=== PATIENT | female | born 1940 | race African-American/Black ===

== ENCOUNTER → 2017-02-22 | Day surgery (SDC) | payer MEDICARE, BC ==
--- NOTE | 2017-02-21 22:58 | Pre-Procedure Note/Attestation ---
Pre-Procedure Note/Attestation Complete Prior to Procedure Planned Procedure: left - Removal of cataract and placement of intraocular lens left eye Indications for Procedure Pre-Operative Diagnosis: cataract, nuclear, left eye Attestation I attest that I discussed the nature of the procedure; its benefits; risks and complications; and alternatives (and the risks and benefits of such alternatives ), prior to the procedure, with the patient (or the patient's legal employment program representative). I attest that, if there was a reasonable possibility of needing a blood transfusion, the patient (or the patient's legal employment program representative) was given the [facility] standardized written summary, pursuant to the Ricardo Jaclyn Blood Safety Act ([place] Health and Safety Code # 1645, as amended). I attest that I re-evaluated the patient just prior to the surgery and that there has been no change in the patient's H&P, except as documented below: Harpreet Ventura MD Feb 21, 2017 22:58
[2017-02-22] VITALS (9 sets, daily range): BP systolic 101–138; BP diastolic 52–81
[~2017-02-22] VITALS: Ht 167.6 cm; Wt 91.6 kg
[~2017-02-22] MED LIST: ASPIRIN81 MG ORAL; Akten 3.5% 1ml Btl ONE; Alfentanil 2ml Inj ONE; Atropine Inj 1mg/10ml Syr IV PRN; BSS 15ml BTL ONE; BSS 500ml btl ONE; Carbachol 0.01% Op Soln 1.5ml vial ONE; Cyclopentolate 1% Opth Sol ONE; DIGOXIN0.125 MG/2 ORAL; Dexamethasone 4mg/ml vial ONE; DiphenhydrAMINE 50mg/ml Inj IVP PRN; EPINEPHrine 1mg/1ml Amp ONE; FUROSEMIDE80 M1 ORAL; Flurbiprofen 0.03% Opth Sol 2.5ml ONE; GABAPENTIN100 MG ORAL; Gatifloxacin Opth Solution 0.5% ONE; Hydromorphone 0.5mg/0.5ml inj IVP PRN; Ketorolac 30mg Inj IV PRN; Ketorolac 60mg Inj IV PRN; LOPRESSOR5 MG/5 ML IV; LORazepam Inj 2mg/ml 1ml IV PRN; LR 1000ml 1,000 ML IVLG SCH; LR 1000ml ONE; Labetalol 5mg/ml 20ml vial IV PRN; Lidocaine 1% MPF 10mg/ml 5ml ONE; METOPROLOL SUCC50 MG ORAL; Maxitrol Opth Oint 3.5gm ONE; Meperidine 25mg/ml Inj IV PRN; Metoclopramide 10mg/2ml Inj IVP PRN; Midazolam 2mg/2ml Inj IVP PRN; NS Irrig 1000ml ONE; Norco 5mg/325mg tab ORAL PRN; Norco 7.5mg/325mg tab ORAL PRN; Oxycodone/Acetaminophen 5-325 ORAL PRN; Phenylephrine 10% Opth Soln 5ml ONE; Povidone-Iodine 5% opth solution ONE; Pred Forte 1% Opth Susp 1ml LEFT EYE ONE; Pred Forte 1% Opth Susp 1ml ONE; Propofol 10mg/ml 20ml IV ONE; Sodium Hyaluronate 14 mg/ml 0.85ml ONE; Sterile Water Irrig 1000ml IRRIG ONE; Tetracaine 0.5% Opth Soln ONE; Timolol 0.5% Op Soln 2.5ml ONE; fentaNYL 100 mcg/2 mL IV PRN
[2017-02-22] MEDS: Flurbiprofen 0.03% Opth Sol 2.5ml LEFT EYE SCH ×3 (11:03→11:38)
[2017-02-22] MEDS: Akten 3.5% 1ml Btl LEFT EYE SCH ×3 (11:03→11:39)
[2017-02-22] MEDS: Gatifloxacin Opth Solution 0.5% LEFT EYE SCH ×3 (11:04→11:39)
[2017-02-22] MEDS: Cyclopentolate 1% Opth Sol LEFT EYE SCH ×3 (11:04→11:39)
[2017-02-22] MEDS: Phenylephrine 10% Opth Soln 5ml LEFT EYE SCH ×3 (11:04→11:38)
--- NOTE | 2017-02-22 13:17 | Anethesia Preoperative Eval ---
Anesthesia Pre-op PMH/ROS General Date of Evaluation: Feb 22, 2017 Time of Evaluation: 12:49 Anesthesiologist: Brown ASA Score: ASA 3 Mallampati Score Class I : Soft palate, uvula, fauces, pillars visible Class II: Soft palate, uvula, fauces visible Class III: Soft palate, base of uvula visible Class IV: Only hard plate visible Mallampati Classification: Class II Surgeon: Lorenzo Diagnosis: Cataract OS Surgical Procedure: Cat Ext IOL OS Anesthesia History: none Family History: no anesthesia problems Allergies: Coded Allergies: PROCHLORPERAZINE (Verified Allergy, Unknown, 02/21/17) TEGASEROD (Verified Allergy, Unknown, 02/22/17) Medications: see eMAR Past Medical History Cardiovascular: Reports: HTN, other - HL Pulmonary: Reports: STACIE - CPAP Other: obesity - BMI 33 PSxH Narrative: Cat OD, Anival THR, Laminectomy Anesthesia Pre-op Phys. Exam Physician Exam Last Vital Signs Date Time Temp Pulse Resp B/P Pulse Ox O2 Delivery O2 Flow Rate FiO2 02/22/17 11:28 98.1 54 18 134/81 95 Room Air Constitutional: NAD Neurologic: CN 2-12 intact Cardiovascular: RRR Respiratory: CTA Gastrointestinal: S/NT/ND Airway Exam Mallampati Score: Class II MO: limited ROM: limited Teeth: missing, intact Anesthesia Pre-op A/P Risk Assessment & Plan Assessment: ASA 3 Plan: GA Status Change Before Surgery: No John Dasilva MD Feb 22, 2017 13:17
--- NOTE | 2017-02-22 13:18 | Immediate Post-Op Evaluation ---
Immediate Post-Op Evalulation Immediate Post-Op Evalulation Procedure: Cat Ext IOL OS Date of Evaluation: Feb 22, 2017 Time of Evaluation: 13:51 IV Fluids: 300 LR Blood Products: 0 Estimated Blood Loss: 1 Urinary Output: 0 Blood Pressure Systolic: 119 Blood Pressure Diastolic: 64 Pulse Rate: 71 Respiratory Rate: 16 O2 Sat by Pulse Oximetry: 98 Temperature (Fahrenheit): 98.6 Pain Score (1-10): 1 Nausea: No Vomiting: No Complications 0 Patient Status: awake, reacts, patent, none Hydration Status: adequate John Dasilva MD Feb 22, 2017 13:18
--- NOTE | 2017-02-22 13:19 | 48 Hour Post Anesthesia Eval ---
Post Anesthesia Evaluation Procedure: Cat Ext IOL OS Date of Evaluation: Feb 22, 2017 Time of Evaluation: 15:53 Blood Pressure Systolic: 118 0: 72 Pulse Rate: 63 Respiratory Rate: 18 Temperature (Fahrenheit): 98.6 O2 Sat by Pulse Oximetry: 99 Airway: patent Nausea: No Vomiting: No Pain Intensity: 1 Hydration Status: adequate Cardiopulmonary Status: Stable Mental Status/LOC: patient returned to baseline Follow-up Care/Observations: 0 Post-Anesthesia Complications: 0 Follow-up care needed: ready to discharge John Dasilva MD Feb 22, 2017 13:19
--- NOTE | 2017-02-22 13:45 | Discharge Instructions ---
Discharge Instructions Discharge Instructions Follow Up Orders Continue preop eye drops Wear shield at all times except to place eye drops Followup tomorrow in Dr Ventura's office For Congestive Heart Failure Reminder Report to your physician any weight gain of 5 pounds or more in one week. Harpreet Ventura MD Feb 22, 2017 13:45
--- NOTE | 2017-02-22 13:47 | Brief Operative Note ---
Immediate Post Operative Note Operative Note Pre-op Diagnosis: cataract, nuclear, left eye Procedure: phaco pc iol, os Post-op Diagnosis: same as pre-op Surgeon: Eliane Ventura MD Housekeeper: none Anesthesiologist: Dr Dasilva Anesthesia: local, MAC Specimen: none Complications: none Fluids: IV Implant(s) used?: Yes - price [id number] [id number] 22.5 Harpreet Ventura MD Feb 22, 2017 13:47
--- NOTE | 2017-02-22 23:09 | Operative Note - Dictated ---
DATE OF OPERATION: 02/22/2017 SURGEON: Harpreet Ventura M.D. FAMILY SERVICE WORKER: None. ANESTHESIOLOGIST: John Dasilva M.D. ANESTHESIA: Local/standby/monitored anesthesia care. PREOPERATIVE DIAGNOSIS: Cataract, senile, nuclear, cortical, left eye. POSTOPERATIVE DIAGNOSIS: Cataract, senile, nuclear, cortical, left eye. PROCEDURE: 1. Phacoemulsification of cataract, left eye. 2. Placement of posterior chamber intraocular lens, left eye (model [id number], power 22.5). SPECIMENS: None. COMPLICATIONS: None. INDICATIONS FOR SURGERY: The patient has had the painless progressive decrease in visual acuity in the left eye secondary to cataract. The patient understands the risks of surgery including infection, bleeding, need for further surgery, loss of vision, no improvement in vision, loss of the eye, loss of life, glaucoma, retinal detachment, and understands these risks and elects to proceed with surgery. FINDINGS: The patient had a very dense central +3 to 4 nuclear sclerotic cataract worse in the periphery, it was more of a +2 nuclear cataract, but there was a +3 cortical change also. Operative Note: After informed consent was obtained, the patient was brought into the operating room and placed in the supine position. Cardiac and respiratory monitors were attached. A time-out was performed and all criteria were met and everyone in the room agreed. The left eye was then draped and prepped in the sterile manner for ocular surgery. A lid speculum was placed in the eye. A 1% lidocaine preservative-free was injected at the approximate 2 o'clock limbus. A conjunctival peritomy from approximately 2 o'clock to 3 o'clock was made and dissected posteriorly. Hemostasis was maintained with bipolar cautery. A 2.6 mm limbal incision was made and centered at approximately 2:30 and dissected anteriorly. Paracentesis was made at approximately 5 o'clock and 1% lidocaine preservative-free was injected into the anterior chamber followed by Brigido. The anterior chamber was then entered using a 2.6 mm keratome through the limbal incision. An anterior capsulorrhexis was then performed. Hydrodissection and hydrodelineation of the lens was then performed. The lens was then phacoemulsified using a divide and conquer four-quadrant technique. Residual cortical material was then aspirated. The lens was taken from its package, placed into the cartridge, and the tip of the cartridge was placed through the limbal incision and the lens was injected into the capsular bag, which had been previously filled with Healon. The lens was centered nicely with a Sinskey hook. Both haptics and the optic were noted to be in the capsular bag. Healon was then aspirated from the anterior chamber and capsular bag. One 10-0 nylon interrupted suture was then placed through the limbal incision and the knot was rotated and buried. Care was taken during the entire procedure not to touch the endothelium. The wounds were then hydrated and closed and then checked and found to be watertight. The conjunctiva was then closed with forceps cautery. The lid speculum and drapes were removed from the eye and a drops of Betadine were placed onto the eye and diluted followed by Pred Forte and Timoptic and gatifloxacin drops and then Maxitrol ointment and a shield. The patient tolerated the procedure well and left the operating room awake, alert, in stable condition. She is to follow up the next day, but sooner on a p.r.n. basis. Harpreet Ventrua M.D. DR: ILEANA JOB#: [id number] CC:
== END | disposition home or self-care (01) ==
LOC: SUR 09:52
DX: H25.12 Age-related nuclear cataract, left eye (principal); H25.012 Cortical age-related cataract, left eye; I10 Essential (primary) hypertension; I48.0 Paroxysmal atrial fibrillation; K21.9 Gastro-esophageal reflux disease without esophagitis; I27.2 Other secondary pulmonary hypertension; E78.5 Hyperlipidemia, unspecified; M19.90 Unspecified osteoarthritis, unspecified site; G89.29 Other chronic pain; M54.5 Low back pain; G47.33 Obstructive sleep apnea (adult) (pediatric); E66.9 Obesity, unspecified; Z68.33 Body mass index [BMI] 33.0-33.9, adult; Z88.8 Allergy status to other drugs, medicaments and biological substances
CPT/HCPCS: 66984; J0171; J1100; J1885; J2704; J3490; J7120; V2632; 94003; 94150